=== PATIENT | female | born 1975 ===

== ENCOUNTER 2018-11-12 01:09 | Emergency (ER) | payer OTHER ==
[2018-11-12 01:23] VITALS: RESP 16; TEMP 96.5
[2018-11-12 02:17] VITALS: BP 119/79; PULSE 55; O2SAT 98
[2018-11-12 02:24] LABS: BASOPHILS % (AUTO) 1 % (0-3); EOSINOPHILS % (AUTO) 1 % (0-9); HEMATOCRIT 42 % (35-47); HEMOGLOBIN 14.4 gm/dl (12.0-15.5); MEAN CORPUSCULAR HEMOGLOBIN 32.6 pg (27.0-32.0); MEAN CORPUSCULAR HGB CONC 34.6 gm/dl (32.0-36.0); MEAN CORPUSCULAR VOLUME 94 fL (81-99); MONOCYTES % (AUTO) 6.5 % (0-12); NEUTROPHILS % (AUTO) 53.3 % (37-80)
[2018-11-12 02:32] LABS: CALCIUM 8.3 mg/dl (8.5-10.1); CARBON DIOXIDE 27.6 mEq/L (21-32); CREATININE 0.69 mg/dl (0.60-1.00); POTASSIUM 3.9 mMol/L (3.5-5.1); THYROID STIMULATING HORMONE 5.699 uIU/ml (0.358-3.740)
== END 2018-11-12 02:55 | disposition home or self-care (01) ==
LOC: ED 01:09
DX: R42 Dizziness and giddiness (principal)
CPT/HCPCS: 36415; 80048; 84443; 85025; 99282